=== PATIENT | male | born 1990 | race African-American/Black ===

== ENCOUNTER 2018-09-07 13:20 | Emergency (ER) | payer OTHER ==
[~2018-09-07] VITALS: Ht 188 cm; Wt 98.6 kg
[2018-09-07] MEDS ORDERED: ULTRAM50 M1 PO (14:55)
[2018-09-07] MEDS ORDERED: FLEXERIL PO (14:55)
[2018-09-07 15:15] VITALS: BP 121/74
== END 2018-09-07 15:15 | disposition home or self-care (01) | DRG 552 ==
LOC: ED 13:20
DX: S33.5XXA Sprain of ligaments of lumbar spine, initial encounter (principal); V43.63XA Car passenger injured in collision with pick-up truck in traffic accident, initial encounter